=== PATIENT | female | born 1955 | race Asian ===

== ENCOUNTER 2022-11-04 14:07 | Inpatient (IN) | payer OTHER, MEDICAID ==
[~2022-11-04] VITALS: Ht 154.9 cm; Wt 48.1 kg
[2022-11-04 14:27] VITALS: BP_SYST 175; PULSE 98; RESP 18; TEMP 98; O2SAT 98
[2022-11-04] MEDS ORDERED: NS 1000 ML IV.SOLN IV ONE (14:30)
--- NOTE | 2022-11-04 14:31 | NUR ---
Placed in room 7 . Placed on monitor car operator, blood pressure machine and pulse oximeter. To gown for exam. Side rails up. Report given to YENNI ADAMS.
[2022-11-04] MEDS ORDERED: DIPHENHYDRAMINE INJ 50 MG/ML VIAL IVP ONE (14:45)
[2022-11-04] MEDS ORDERED: METOCLOPRAMIDE HCL 10 MG/2 ML VIAL IVP ONE (14:45)
[2022-11-04] MEDS ORDERED: INSULIN REGULAR, HUMAN 10 UNITS/0.1 ML, 3 ML VIAL IVP ONE (14:45)
[2022-11-04 15:05] LABS: BASOPHILS % (AUTO) 0.2 % (0.0-2.0); HEMATOCRIT 33.2 % (36-48); HEMOGLOBIN 11.1 g/dL (12.0-16.0); LYMPHOCYTES # (AUTO) 0.7 K/uL (1.0-5.5); LYMPHOCYTES % (AUTO) 8.6 % (20.5-51.5); MEAN CORPUSCULAR HEMOGLOBIN 29 pg (27-31); MEAN CORPUSCULAR HGB CONC 34 % (32-36); MEAN CORPUSCULAR VOLUME 88 fL (79.0-98.0); MONOCYTES # (AUTO) 0.7 K/uL (0.0-1.0); MONOCYTES % (AUTO) 7.8 % (1.7-9.3); NEUTROPHILS # (AUTO) 7.3 K/uL (1.8-7.7); NEUTROPHILS % (AUTO) 83.4 % (40.0-70.0); PLATELET COUNT (AUTO) 197 K/uL (130-430); RED BLOOD CELL COUNT(AUTO) 3.79 MIL/uL (4.2-6.2); RED CELL DISTRIBUTION WIDTH 13.1 % (9.0-15.0); WHITE BLOOD COUNT (AUTO) 8.7 K/uL (4.8-10.8)
[2022-11-04 15:20] LABS: INR 0.9 (0.8-1.2); PROTHROMBIN TIME 9.5 SECS (9.5-12.5)
[2022-11-04 15:30] LABS: ALANINE AMINOTRANSFERASE 26 U/L (12-78); ALBUMIN 2.6 g/dL (3.4-4.8); ANION GAP 9 (5-15); ASPARTATE AMINOTRANSFERASE 15 U/L (10-37); CALCIUM 9.1 mg/dL (8.4-11.0); CHLORIDE 94 mmol/L (98-107); CREATININE 2.25 mg/dL (0.55-1.30); GFR AFRICAN AMERICAN 28 mL/min (>90); TOTAL BILIRUBIN 0.5 mg/dL (0.0-1.0); UREA NITROGEN, BLOOD 65 mg/dL (8-21)
[2022-11-04 15:38] LABS: GLUCOSE 561 mg/dL (70-99)
[2022-11-04] MEDS ORDERED: NACL 0.9% 1,000 ML IV ONE (16:00)
--- NOTE | 2022-11-04 16:00 | NUR ---
Patient has been resting in bed after MD's evaluation. Patient receiving fluid thoughoit
[2022-11-04 16:23] LABS: ACETONE, SERUM NEGATIVE (NEGATIVE)
[2022-11-04] MEDS ORDERED: INSULIN REGULAR, HUMAN 100 UNITS/ML, 3 ML VIAL (humuLIN R) SUBCUT PRN (17:15)
[2022-11-04 17:19] LABS: BILIRUBIN,URINE NEGATIVE (NEGATIVE); BLOOD, URINE 2+ (NEGATIVE); CLARITY/URINE CLOUDY (CLEAR); COLOR,URINE YELLOW (YELLOW); GLUCOSE,URINE 3+ (NEGATIVE); KETONES,URINE NEGATIVE (NEGATIVE); LEUKOCYTE ESTERASE ,URINE 1+ (NEGATIVE); NITRITE, URINE POSITIVE (NEGATIVE); PROTEIN URINE 3+ (NEGATIVE); UROBILINOGEN,URINE 0.2 (0.2-1.0)
[2022-11-04] MEDS: NACL 0.9% 1,000 ML IV SCH ×2 (17:23→21:47)
[2022-11-04] MEDS ORDERED: INSULIN REGULAR, HUMAN 10 UNITS/0.1 ML, 3 ML VIAL ONE (17:35)
--- NOTE | 2022-11-04 17:52 | NUR ---
Patient finally went to bathroom and provided urine. Urine was sent to the lab and patient has UTI. Patient's med given and patient escorted to floor by BRYAN King.
--- NOTE | 2022-11-04 17:53 | NUR ---
Patient will be admitted to care of Dr. Mcfadden. Admitted to telemetry unit. Will go to room 111B. Belongings list completed. Complete and up to date summary report printed. SBAR report to be given at bedside with opportunity for questions.
[2022-11-04] MEDS ORDERED: cefTRIAXone 1 GM IVPB PREMIX 50 ML IV ONE (18:00)
--- NOTE | 2022-11-04 18:30 | NUR ---
Admit notes received pt fro ER, No distress. Denies any pain at this time. Eating dinner. IVF infusing well. Make comfortable.
[2022-11-04 18:32] VITALS: BP_SYST 163; PULSE 115; RESP 18; TEMP 99.2; O2SAT 99
[2022-11-04 18:33] LABS: WBC,URINE >100 /HPF (0-3)
[2022-11-04 18:34] LABS: BACTERIA,URINE MANY /HPF (None Seen); MUCUS,URINE None Seen /LPF (None Seen)
[2022-11-04 18:45] VITALS: BP_SYST 163; PULSE 118; RESP 16; TEMP 99.2; O2SAT 99
--- NOTE | 2022-11-04 18:52 | NUR ---
Admission done.. Will endorse to do belongings
--- NOTE | 2022-11-04 19:50 | NUR ---
OPENING NOTE PT LYING IN BED AND EYES CLOSED. A/OX4. BREATHING EVEN AND NONLABORED RA. O2 SAT 98%. BODY TEMPT 99.6. DENIED PAIN. SKIN INTACT. SAFETY CHECKS IN PLACE. CALL LIGHT IN REACH. CONTINUE TO MONITOR
--- NOTE | 2022-11-04 19:51 | NUR ---
Paged Dr. Mcfadden s/w Frank
[2022-11-04 20:00] VITALS: O2SAT 98
[2022-11-04 20:04] VITALS: BP_SYST 164; PULSE 88; RESP 18; TEMP 99.6; O2SAT 98
[2022-11-04] MEDS ORDERED: ACETAMINOPHEN 500 MG TABLET PO PRN (21:30)
[2022-11-04] MEDS ORDERED: cloNIDine HCL 0.2 MG TABLET PO PRN (21:30)
--- NOTE | 2022-11-04 21:30 | NUR ---
RECEIVED ORDERS RECEIVED RETURN CALL FROM DR. COOPER. REPORTED PT'S MILD FEVER, HIGH BP. RECEIVED ORDER CLONIDINE 0.2mg Q6P WHEN SYSTOLIC OVER 160, TYLENOL 500mg Q6H WHEN TEMP OVER 100.4, GLUCOSE CHECK Q4H, COVERED NORMAL INSULIN. FLUID NS @[address] COOPER
--- NOTE | 2022-11-04 22:02 | NUR ---
IV FLUID HUNG NS @100 mL. IV ON LEFT AC 22G AND PATENT SKIN INTACT.
[2022-11-04 22:22] VITALS: BP_SYST 164; PULSE 88; RESP 18; TEMP 99.6
--- NOTE | 2022-11-04 22:50 | NUR ---
ACCU CHECK PT'S BLOOD GLUCOSE 113. NO INSULIN COVERED
[2022-11-05 00:02] VITALS: BP_SYST 143; PULSE 89; RESP 16; TEMP 98.4; O2SAT 98
--- NOTE | 2022-11-05 01:33 | NUR ---
ROUNDING NOTE PT LYING IN BED AND EYES CLOSED. BREATHING EVEN AND NONLABORED ON RA. VSS. NS IV RUNNING @100mL. SAFETY CHECKS IN PLACE. CALL LIGHT IN REACH. CONTINUE TO MONITOR
[2022-11-05] MEDS: INSULIN REGULAR, HUMAN 100 UNITS/ML, 3 ML VIAL (humuLIN R) SUBCUT PRN ×5 (03:18→21:15)
--- NOTE | 2022-11-05 03:20 | NUR ---
ACCU CHECK BLOOD GLUCOSE 211. GIVEN HUMULIN R 4 UNITS. ALL COMFORT MEASURE MET AT THIS MOMENT. CONTINUE TO MONITOR
--- NOTE | 2022-11-05 06:39 | NUR ---
ACCU CHECK BLOOD GLUCOSE 159. GIVEN 2 UNITS OF HUMULIN R
--- NOTE | 2022-11-05 06:50 | NUR ---
CLOSING NOTE PT LYING IN BED AND EYES CLOSED. BREATHING EVEN AND NONLABORED ON RA. NO PAIN REPORTED. IV RUNNING NS @100 ON LEFT AC 22G. SAFETY CHECKS IN PLACE. CALL LIGHT IN REACH. ENDORSED TO DAY SHIFT NURSE
[2022-11-05 08:08] VITALS: BP_SYST 154; PULSE 97; RESP 16; TEMP 97.8; O2SAT 100
--- NOTE | 2022-11-05 08:30 | NUR ---
opening notes pt is alert orented x4, it site to l fa is intact, no co pain, pt ambulated with asst. states she feels better, eating feeding herslf, instructed to call for any needs, call light with in reach.
[2022-11-05] MEDS ORDERED: HYDROcodone/ACETAMIN 5-325 MG TAB (NORCO/ VICODIN) PO PRN (10:00)
[2022-11-05] MEDS ORDERED: LORazepam 2 MG/ML VIAL IVP PRN (10:00)
[2022-11-05] MEDS: NACL 0.9% 1,000 ML IV SCH ×2 (10:00→20:36)
[2022-11-05] MEDS ORDERED: ACETAMINOPHEN 325 MG TABLET PO PRN ×2 (10:00→10:15)
[2022-11-05] MEDS ORDERED: HYDROcodone/ACETAMIN 10-325 MG TAB PO PRN (10:00)
[2022-11-05] MEDS ORDERED: NALOXONE HCL 0.4 MG/ML AMP (NARCAN) IVP PRN ×2 (10:00)
[2022-11-05] MEDS ORDERED: ONDANSETRON HCL 4 MG/2 ML VIAL IVP PRN (10:00)
--- NOTE | 2022-11-05 10:00 | NUR ---
ACTIVITY AMBULATED WITH PATIENT TO REST ROOM, GATE WAS STEADY, NO ASST. NEEDED.VOIDED.
--- NOTE | 2022-11-05 10:30 | NUR ---
fingersticks q4 hour finger stick D/cd
--- NOTE | 2022-11-05 10:33 | NUR ---
CONSULTATION PAGED/CALLED Reason for Consultation: COY Person Who was Notified: SHI Consulting Physician: DR. OH Store Host Specialty: NEPHROLOGY Ordering Physician: DR. LOZA
--- NOTE | 2022-11-05 11:08 | NUR ---
TELEMETRIY DOWNGRADE TELE DOWNGRADE , MONITOR REMOVED, PT COMFORTABLE, NO C/OP DISCOMFORT, CALL LIGHT WITH IN REACH.
[2022-11-05] MEDS: cefTRIAXone 1 GM IVPB PREMIX 50 ML IV SCH (11:26)
[2022-11-05 11:27] VITALS: BP_SYST 141; PULSE 89; RESP 16; TEMP 98; O2SAT 96
--- NOTE | 2022-11-05 11:54 | NUR ---
ACCUCHECK BS 199 2U GIVEN, PER ORDERS ON SS. PT HAS NO C/O DISCOMFORT
[2022-11-05 12:43] VITALS: BP_SYST 144; PULSE 88; RESP 14; TEMP 97.8; O2SAT 100
--- NOTE | 2022-11-05 15:13 | NUR ---
PHYSICAL THERAPY PT HERE TO ASSESS PT, SAYS SHE HAS GENERAL WEAKNESS AND DOES NOT RECOMEND SHE WALK BY HERSELF, STATES SHE HAD SOME DIZZINESS WHILE AMBULATING. PT RETURNED TO BED, CALL LIGHT WITH IN REACH, NO FURTHER CO DIZZINESS,
[2022-11-05 16:42] VITALS: BP_SYST 135; PULSE 84; RESP 16; TEMP 97.6; O2SAT 95
--- NOTE | 2022-11-05 17:15 | NUR ---
ACTIVITY AMBULATED WITH PT TO REST ROOM, NO C/O DIZZINESS, GAIT WAS STEADY. MINIMAL ASST NEEDED.VOIDED, RETURNED TO BED, PT SITTING UP WAITING FOR DINNER, CALL LIGHT WITH IN REACH
--- NOTE | 2022-11-05 17:28 | NUR ---
LAWRENCE BS 284 INSULIN GIVEN PER ORDERS ON SS.
--- NOTE | 2022-11-05 18:18 | NUR ---
CLOSING PT LYING COMFORTABLY IN BED, IV SITE INTACT, NO CO PAIN, DIZZINESS, OR ANY NEEDS, CALL LIGHT WITH IN REACH.
[2022-11-05 19:42] VITALS: BP_SYST 178; PULSE 94; RESP 18; TEMP 98.1; O2SAT 96
--- NOTE | 2022-11-05 21:00 | NUR ---
Discussed plan of care,safety ,medication indication indication ,side effect verbalized understanding,bedside commode provided for safety/comfort.
--- NOTE | 2022-11-05 23:17 | NUR ---
PATIENT RESTING: Patient resting quietly. No acute distress noted. Vital signs within normal range.
[2022-11-06 00:34] VITALS: BP_SYST 133; PULSE 69; RESP 20; TEMP 98.5; O2SAT 98
[2022-11-06 06:16] LABS: BASOPHILS % (AUTO) 0.4 % (0.0-2.0); EOSINOPHILS # (AUTO) 0.1 K/uL (0.0-0.4); EOSINOPHILS % (AUTO) 0.8 % (0.0-4.0); HEMATOCRIT 27.2 % (36-48); HEMOGLOBIN 9.1 g/dL (12.0-16.0); LYMPHOCYTES % (AUTO) 15.4 % (20.5-51.5); MEAN CORPUSCULAR HEMOGLOBIN 29 pg (27-31); MEAN CORPUSCULAR HGB CONC 34 % (32-36); MEAN CORPUSCULAR VOLUME 87 fL (79.0-98.0); MONOCYTES # (AUTO) 0.7 K/uL (0.0-1.0); MONOCYTES % (AUTO) 11.3 % (1.7-9.3); NEUTROPHILS # (AUTO) 4.6 K/uL (1.8-7.7); NEUTROPHILS % (AUTO) 72.1 % (40.0-70.0); PLATELET COUNT (AUTO) 191 K/uL (130-430); RED BLOOD CELL COUNT(AUTO) 3.14 MIL/uL (4.2-6.2); RED CELL DISTRIBUTION WIDTH 13.5 % (9.0-15.0); WHITE BLOOD COUNT (AUTO) 6.4 K/uL (4.8-10.8)
[2022-11-06 06:23] LABS: CALCIUM 8.1 mg/dL (8.4-11.0); CREATININE 1.17 mg/dL (0.55-1.30); PHOSPHORUS 3.3 mg/dL (2.7-4.5)
[2022-11-06] MEDS: NACL 0.9% 1,000 ML IV SCH (07:27)
[2022-11-06 08:00] VITALS: BP_SYST 129; PULSE 70; RESP 19; TEMP 97.3; O2SAT 97
[2022-11-06] MEDS: cefTRIAXone 1 GM IVPB PREMIX 50 ML IV SCH (09:27)
[2022-11-06 11:44] VITALS: BP_SYST 141; PULSE 76; RESP 18; TEMP 98; O2SAT 99
[2022-11-06 12:00] VITALS: BP_SYST 136; PULSE 79; RESP 19; TEMP 98.6; O2SAT 97
[2022-11-06] MEDS: INSULIN REGULAR, HUMAN 100 UNITS/ML, 3 ML VIAL (humuLIN R) SUBCUT PRN ×3 (12:12→22:03)
[2022-11-06] MEDS: NORMAL SALINE 5 ML DISP.SYRIN IVF SCH ×2 (14:11→22:01)
[2022-11-06 16:00] VITALS: BP_SYST 142; BP_SYST 144; PULSE 80; PULSE 82; RESP 17; RESP 20; TEMP 97.6; TEMP 98.8; O2SAT 96; O2SAT 98
[2022-11-06] MEDS: metFORMIN HCL 500 MG TABLET PO SCH (18:11)
--- NOTE | 2022-11-06 19:18 | NUR ---
Dietitian Recommendations * Continue [facility] diet * Encourage good PO intakes * Low-glycemic, high-protein snacks between meals TID FRENCH, MS, RD Please refer to Nutrition Assessment for details. Addendum: 11/06/22 at [address] Amended: Links added.
[2022-11-06 20:00] VITALS: BP_SYST 157; PULSE 88; RESP 17; TEMP 97.8; O2SAT 99
[2022-11-06] MEDS: LISINOPRIL 10 MG TABLET (PRINIVIL) PO SCH (22:00)
[2022-11-07] VITALS (7 sets, daily range): BP systolic 144–161; PULSE 78–91; RESP 16–19; TEMP 96.9–98.6; O2SAT 95–100
[2022-11-07 05:42] LABS: BASOPHILS % (AUTO) 0.4 % (0.0-2.0); EOSINOPHILS # (AUTO) 0.1 K/uL (0.0-0.4); EOSINOPHILS % (AUTO) 1.2 % (0.0-4.0); HEMOGLOBIN 8.8 g/dL (12.0-16.0); LYMPHOCYTES # (AUTO) 1.5 K/uL (1.0-5.5); LYMPHOCYTES % (AUTO) 20.9 % (20.5-51.5); MEAN CORPUSCULAR HEMOGLOBIN 29 pg (27-31); MEAN CORPUSCULAR HGB CONC 34 % (32-36); MEAN CORPUSCULAR VOLUME 86 fL (79.0-98.0); MONOCYTES # (AUTO) 0.7 K/uL (0.0-1.0); MONOCYTES % (AUTO) 10.4 % (1.7-9.3); NEUTROPHILS # (AUTO) 4.8 K/uL (1.8-7.7); NEUTROPHILS % (AUTO) 67.1 % (40.0-70.0); PLATELET COUNT (AUTO) 193 K/uL (130-430); RED BLOOD CELL COUNT(AUTO) 3.02 MIL/uL (4.2-6.2); RED CELL DISTRIBUTION WIDTH 13.5 % (9.0-15.0); WHITE BLOOD COUNT (AUTO) 7.1 K/uL (4.8-10.8)
[2022-11-07 06:25] LABS: ALBUMIN 1.6 g/dL (3.4-4.8); CALCIUM 7.8 mg/dL (8.4-11.0); CREATININE 1.04 mg/dL (0.55-1.30); PHOSPHORUS 3.5 mg/dL (2.7-4.5); TOTAL BILIRUBIN 0.2 mg/dL (0.0-1.0)
[2022-11-07 06:41] LABS: ERYTHROCYTE SEDIMENTATION RATE 79 MM/HR (0-20)
[2022-11-07] MEDS: NORMAL SALINE 5 ML DISP.SYRIN IVF SCH ×3 (06:50→20:59)
--- NOTE | 2022-11-07 07:00 | NUR ---
NOTES PATIENT IS RESTING, BREATHING UNLABORED ON RA. NO PAIN, NO DISTRESS, NO SOB REPORTED. ENCOURAGE PATIENT TO USE CALL LIGHT FOR HELP. SAFETY PRECAUTION IN PLACE. CALL LIGHT WITHIN REACH. BED LOCKED IN LOWEST POSITION. WILL CONTINUE WITH PLAN OF CARE.
[2022-11-07] MEDS: metFORMIN HCL 500 MG TABLET PO SCH ×2 (08:49→17:07)
--- NOTE | 2022-11-07 10:21 | NUR ---
CONSULTATION PAGED REASON FOR CONSULTATION: SEPSIS WAS CONSULT CALLED? Y PERSON WHO WAS NOTIFIED: SACHIN CONSULTING PHYSICIAN: KATIANA KWONG SUBSTANCE ABUSE THERAPIST SPECIALTY: ID SUBSTANCE ABUSE THERAPIST PHONE NUMBER: [phone] REQUESTING PHYSICIAN: QUIQUE MATTHEW
[2022-11-07] MEDS: INSULIN REGULAR, HUMAN 100 UNITS/ML, 3 ML VIAL (humuLIN R) SUBCUT PRN ×3 (11:25→20:59)
[2022-11-07] MEDS: cefTRIAXone 1 GM IVPB PREMIX 50 ML IV SCH (11:58)
--- NOTE | 2022-11-07 18:50 | NUR ---
CLOSING PATIENT IS RESTING, BREATHING UNLABORED ON RA. NO PAIN, NO DISTRESS, NO SOB REPORTED. ENCOURAGE PATIENT TO USE CALL LIGHT FOR HELP. SAFETY PRECAUTION IN PLACE. CALL LIGHT WITHIN REACH. BED LOCKED IN LOWEST POSITION. WILL ENDORSE TO LAUNDRY EQUIPMENT OPERATOR NURSE.
[2022-11-07] MEDS: LISINOPRIL 10 MG TABLET (PRINIVIL) PO SCH (20:57)
[2022-11-08 00:33] VITALS: BP_SYST 153; PULSE 80; RESP 15; TEMP 97.8; O2SAT 98
[2022-11-08] MEDS: NORMAL SALINE 5 ML DISP.SYRIN IVF SCH ×3 (05:40→21:04)
[2022-11-08] MEDS: INSULIN REGULAR, HUMAN 100 UNITS/ML, 3 ML VIAL (humuLIN R) SUBCUT PRN ×3 (06:33→21:08)
[2022-11-08 07:15] LABS: BASOPHILS % (AUTO) 0.4 % (0.0-2.0); EOSINOPHILS # (AUTO) 0.1 K/uL (0.0-0.4); EOSINOPHILS % (AUTO) 1.3 % (0.0-4.0); HEMATOCRIT 28.6 % (36-48); HEMOGLOBIN 9.4 g/dL (12.0-16.0); LYMPHOCYTES # (AUTO) 1.6 K/uL (1.0-5.5); LYMPHOCYTES % (AUTO) 20.4 % (20.5-51.5); MEAN CORPUSCULAR HEMOGLOBIN 29 pg (27-31); MEAN CORPUSCULAR HGB CONC 33 % (32-36); MEAN CORPUSCULAR VOLUME 87 fL (79.0-98.0); MONOCYTES # (AUTO) 0.8 K/uL (0.0-1.0); NEUTROPHILS # (AUTO) 5.2 K/uL (1.8-7.7); NEUTROPHILS % (AUTO) 67.9 % (40.0-70.0); PLATELET COUNT (AUTO) 268 K/uL (130-430); RED BLOOD CELL COUNT(AUTO) 3.29 MIL/uL (4.2-6.2); RED CELL DISTRIBUTION WIDTH 13.2 % (9.0-15.0); WHITE BLOOD COUNT (AUTO) 7.7 K/uL (4.8-10.8)
--- NOTE | 2022-11-08 07:55 | NUR ---
OPENING NOTES: PATIENT IN BED WITH EYES OPENED. RESPONDED TO NAME. BREATHING IS EVEN AND UNLABORED ON RA 98%. NO S/S OF DISTRESS OR PAIN NOTED. IV IS PATENT AND SALINE LOCKED. ALL NEEDS MET AT THIS TIME, SAFETY CHECKS MADE AND CALL LIGHT WITHIN REACH.
[2022-11-08 08:00] VITALS: BP_SYST 152; PULSE 76; RESP 15; TEMP 97.1; O2SAT 98
[2022-11-08 08:02] LABS: CALCIUM 8.4 mg/dL (8.4-11.0); CREATININE 1.09 mg/dL (0.55-1.30)
[2022-11-08] MEDS: metFORMIN HCL 500 MG TABLET PO SCH ×2 (08:12→17:50)
[2022-11-08 08:14] LABS: ERYTHROCYTE SEDIMENTATION RATE 100 MM/HR (0-20)
[2022-11-08 12:00] VITALS: BP_SYST 141; PULSE 78; RESP 16; TEMP 98.2; O2SAT 98
[2022-11-08 13:37] VITALS: O2SAT 98
[2022-11-08] MEDS ORDERED: D5/0.45 NS 1,000 ML IV SCH (15:00)
[2022-11-08 16:00] VITALS: BP_SYST 150; PULSE 87; RESP 16; TEMP 98.2; O2SAT 95
--- NOTE | 2022-11-08 18:23 | NUR ---
CLOSING NOTES: PATIENT SITTING EDGE OF BED EATING DINNER. NO S/S OF DISTRESS OR PAIN REPORTED. BREATHING IS EVEN AND UNLABORED ON RA 99%. ALL NEEDS MET AT THIS TIME, SAFETY CHECKS MADE AND CALL LIGHT WITHIN REACH. WILL ENDORSE TO BLEACHER SULFITE PULP NURSE.
[2022-11-08 20:20] VITALS: BP_SYST 152; PULSE 92; RESP 16; TEMP 97.2; O2SAT 98
[2022-11-08] MEDS: LISINOPRIL 10 MG TABLET (PRINIVIL) PO SCH (21:02)
[2022-11-09 00:25] VITALS: BP_SYST 150; PULSE 88; RESP 17; TEMP 98.4; O2SAT 98
[2022-11-09] MEDS: NORMAL SALINE 5 ML DISP.SYRIN IVF SCH ×3 (06:03→21:13)
[2022-11-09] MEDS: INSULIN REGULAR, HUMAN 100 UNITS/ML, 3 ML VIAL (humuLIN R) SUBCUT PRN ×4 (06:08→21:13)
[2022-11-09 06:48] LABS: BASOPHILS % (AUTO) 0.4 % (0.0-2.0); EOSINOPHILS # (AUTO) 0.1 K/uL (0.0-0.4); EOSINOPHILS % (AUTO) 0.9 % (0.0-4.0); HEMATOCRIT 30.2 % (36-48); LYMPHOCYTES # (AUTO) 2.1 K/uL (1.0-5.5); LYMPHOCYTES % (AUTO) 21.5 % (20.5-51.5); MEAN CORPUSCULAR HEMOGLOBIN 29 pg (27-31); MEAN CORPUSCULAR HGB CONC 33 % (32-36); MEAN CORPUSCULAR VOLUME 86 fL (79.0-98.0); MONOCYTES # (AUTO) 0.6 K/uL (0.0-1.0); MONOCYTES % (AUTO) 6.2 % (1.7-9.3); NEUTROPHILS # (AUTO) 6.8 K/uL (1.8-7.7); PLATELET COUNT (AUTO) 343 K/uL (130-430); RED BLOOD CELL COUNT(AUTO) 3.51 MIL/uL (4.2-6.2); RED CELL DISTRIBUTION WIDTH 13.4 % (9.0-15.0); WHITE BLOOD COUNT (AUTO) 9.6 K/uL (4.8-10.8)
[2022-11-09 07:21] LABS: ALBUMIN 2.1 g/dL (3.4-4.8); CALCIUM 8.6 mg/dL (8.4-11.0); CREATININE 1.14 mg/dL (0.55-1.30); PHOSPHORUS 4.1 mg/dL (2.7-4.5); TOTAL BILIRUBIN 0.4 mg/dL (0.0-1.0)
[2022-11-09 08:00] VITALS: BP_SYST 143; PULSE 77; RESP 15; TEMP 97.1; O2SAT 97
--- NOTE | 2022-11-09 08:19 | NUR ---
OPENING NOTES: PATIENT IN BED ON HER CELL PHONE. RESPONDED TO NAME. NO S/S OF DISTRESS OR PAIN REPORTED. BREATHING IS EVEN AND UNLABORED ON RA 98% . SAFETY CHECKS MADE AND CALL LIGHT WITHIN REACH.
[2022-11-09] MEDS: metFORMIN HCL 500 MG TABLET PO SCH ×2 (08:43→18:08)
[2022-11-09 12:57] VITALS: BP_SYST 148; PULSE 80; RESP 16; TEMP 97.8; O2SAT 97
[2022-11-09 12:59] VITALS: O2SAT 97
--- NOTE | 2022-11-09 14:33 | NUR ---
patient in bed with eyes closed. responded to name. no s/s of distress or pain reported. breathing is even and unlabored. safety checks made and call light within reach.
[2022-11-09 16:00] VITALS: BP_SYST 145; PULSE 79; RESP 15; TEMP 97.4; O2SAT 96
[2022-11-09 20:10] VITALS: BP_SYST 140; PULSE 89; RESP 17; TEMP 98.4; O2SAT 96
[2022-11-09] MEDS: LISINOPRIL 10 MG TABLET (PRINIVIL) PO SCH (21:09)
[2022-11-10 00:10] VITALS: BP_SYST 148; PULSE 80; RESP 18; TEMP 98.9; O2SAT 98
[2022-11-10 04:59] LABS: BASOPHILS % (AUTO) 0.3 % (0.0-2.0); EOSINOPHILS # (AUTO) 0.1 K/uL (0.0-0.4); EOSINOPHILS % (AUTO) 0.9 % (0.0-4.0); HEMATOCRIT 24.5 % (36-48); HEMOGLOBIN 8.3 g/dL (12.0-16.0); LYMPHOCYTES # (AUTO) 2.1 K/uL (1.0-5.5); LYMPHOCYTES % (AUTO) 19.8 % (20.5-51.5); MEAN CORPUSCULAR HEMOGLOBIN 29 pg (27-31); MEAN CORPUSCULAR HGB CONC 34 % (32-36); MEAN CORPUSCULAR VOLUME 86 fL (79.0-98.0); MONOCYTES # (AUTO) 0.6 K/uL (0.0-1.0); MONOCYTES % (AUTO) 6.1 % (1.7-9.3); NEUTROPHILS # (AUTO) 7.7 K/uL (1.8-7.7); NEUTROPHILS % (AUTO) 72.9 % (40.0-70.0); PLATELET COUNT (AUTO) 337 K/uL (130-430); RED BLOOD CELL COUNT(AUTO) 2.86 MIL/uL (4.2-6.2); RED CELL DISTRIBUTION WIDTH 12.9 % (9.0-15.0); WHITE BLOOD COUNT (AUTO) 10.5 K/uL (4.8-10.8)
[2022-11-10 05:35] LABS: ALBUMIN 1.8 g/dL (3.4-4.8); CALCIUM 8.2 mg/dL (8.4-11.0); CREATININE 1.02 mg/dL (0.55-1.30); PHOSPHORUS 3.9 mg/dL (2.7-4.5); TOTAL BILIRUBIN 0.3 mg/dL (0.0-1.0)
[2022-11-10] MEDS: NORMAL SALINE 5 ML DISP.SYRIN IVF SCH ×3 (06:15→22:03)
[2022-11-10 07:00] VITALS: BP_SYST 115; PULSE 78; RESP 18; TEMP 96.3; O2SAT 100
[2022-11-10 08:00] VITALS: BP_SYST 115; PULSE 78; RESP 18; TEMP 96.3; O2SAT 100
[2022-11-10] MEDS: metFORMIN HCL 500 MG TABLET PO SCH ×2 (08:33→17:38)
[2022-11-10] MEDS: INSULIN REGULAR, HUMAN 100 UNITS/ML, 3 ML VIAL (humuLIN R) SUBCUT PRN ×3 (11:58→22:11)
[2022-11-10 16:00] VITALS: BP_SYST 136; PULSE 62; RESP 18; TEMP 98.3; O2SAT 98
[2022-11-10 20:00] VITALS: BP_SYST 124; PULSE 90; RESP 18; TEMP 96.3; O2SAT 98
[2022-11-10] MEDS: LISINOPRIL 10 MG TABLET (PRINIVIL) PO SCH (22:03)
[2022-11-11 00:30] VITALS: BP_SYST 128; PULSE 65; RESP 18; TEMP 97.7; O2SAT 96
[2022-11-11] MEDS: NORMAL SALINE 5 ML DISP.SYRIN IVF SCH ×3 (06:07→22:21)
[2022-11-11 06:22] LABS: BASOPHILS % (AUTO) 0.4 % (0.0-2.0); EOSINOPHILS # (AUTO) 0.1 K/uL (0.0-0.4); EOSINOPHILS % (AUTO) 1.6 % (0.0-4.0); HEMATOCRIT 24.6 % (36-48); HEMOGLOBIN 8.1 g/dL (12.0-16.0); LYMPHOCYTES % (AUTO) 23.3 % (20.5-51.5); MEAN CORPUSCULAR HEMOGLOBIN 29 pg (27-31); MEAN CORPUSCULAR HGB CONC 33 % (32-36); MEAN CORPUSCULAR VOLUME 87 fL (79.0-98.0); MONOCYTES # (AUTO) 0.5 K/uL (0.0-1.0); MONOCYTES % (AUTO) 5.3 % (1.7-9.3); NEUTROPHILS % (AUTO) 69.4 % (40.0-70.0); PLATELET COUNT (AUTO) 363 K/uL (130-430); RED BLOOD CELL COUNT(AUTO) 2.83 MIL/uL (4.2-6.2); RED CELL DISTRIBUTION WIDTH 13.3 % (9.0-15.0); WHITE BLOOD COUNT (AUTO) 8.6 K/uL (4.8-10.8)
[2022-11-11 07:05] LABS: CALCIUM 8.3 mg/dL (8.4-11.0)
[2022-11-11 07:06] LABS: CREATININE 1.15 mg/dL (0.55-1.30)
[2022-11-11 08:13] VITALS: BP_SYST 138; PULSE 77; RESP 16; TEMP 97.2; O2SAT 100
[2022-11-11] MEDS: metFORMIN HCL 500 MG TABLET PO SCH ×2 (09:10→17:56)
[2022-11-11] MEDS ORDERED: LISI10TA29 PO (11:08)
[2022-11-11] MEDS ORDERED: METF-379 PO (11:08)
[2022-11-11] MEDS ORDERED: ROCI2 IM/IV (11:08)
[2022-11-11] MEDS: INSULIN REGULAR, HUMAN 100 UNITS/ML, 3 ML VIAL (humuLIN R) SUBCUT PRN ×2 (11:52→21:22)
[2022-11-11 14:39] VITALS: BP_SYST 127; PULSE 82; RESP 16; TEMP 98.3; O2SAT 97
[2022-11-11 19:00] VITALS: BP_SYST 153; PULSE 83; RESP 12; TEMP 98; O2SAT 100
[2022-11-11 20:00] VITALS: BP_SYST 153; PULSE 83; RESP 12; TEMP 98; O2SAT 100
[2022-11-11] MEDS: LISINOPRIL 10 MG TABLET (PRINIVIL) PO SCH (21:11)
[2022-11-12] VITALS: BP_SYST 134; PULSE 72; RESP 12; TEMP 97.2; O2SAT 99
[2022-11-12 05:11] LABS: BASOPHILS % (AUTO) 0.4 % (0.0-2.0); EOSINOPHILS # (AUTO) 0.1 K/uL (0.0-0.4); EOSINOPHILS % (AUTO) 1.3 % (0.0-4.0); HEMOGLOBIN 7.9 g/dL (12.0-16.0); LYMPHOCYTES % (AUTO) 25.3 % (20.5-51.5); MEAN CORPUSCULAR HEMOGLOBIN 29 pg (27-31); MEAN CORPUSCULAR HGB CONC 33 % (32-36); MEAN CORPUSCULAR VOLUME 86 fL (79.0-98.0); MONOCYTES # (AUTO) 0.5 K/uL (0.0-1.0); MONOCYTES % (AUTO) 5.8 % (1.7-9.3); NEUTROPHILS # (AUTO) 5.4 K/uL (1.8-7.7); NEUTROPHILS % (AUTO) 67.2 % (40.0-70.0); PLATELET COUNT (AUTO) 399 K/uL (130-430); RED BLOOD CELL COUNT(AUTO) 2.78 MIL/uL (4.2-6.2); RED CELL DISTRIBUTION WIDTH 13.2 % (9.0-15.0)
[2022-11-12 05:38] LABS: CALCIUM 8.4 mg/dL (8.4-11.0); CREATININE 1.09 mg/dL (0.55-1.30)
[2022-11-12 05:39] LABS: ERYTHROCYTE SEDIMENTATION RATE 68 MM/HR (0-20)
[2022-11-12] MEDS: NORMAL SALINE 5 ML DISP.SYRIN IVF SCH ×2 (06:00→14:21)
[2022-11-12 08:17] VITALS: BP_SYST 139; PULSE 81; RESP 14; TEMP 97.4; O2SAT 96
[2022-11-12] MEDS: metFORMIN HCL 500 MG TABLET PO SCH (08:43)
[2022-11-12 10:55] VITALS: BP_SYST 135; PULSE 78; RESP 17; TEMP 97.8; O2SAT 97
[2022-11-12] MEDS: INSULIN REGULAR, HUMAN 100 UNITS/ML, 3 ML VIAL (humuLIN R) SUBCUT PRN (11:39)
--- NOTE | 2022-11-12 12:02 | NUR ---
Marino Turcios with [facility] patient phone number to set up home health. Addendum: 11/12/22 at 1206 by Venkatesh Ohara RN RN stephany Dillon
[2022-11-12 13:00] VITALS: BP_SYST 158; PULSE 86; RESP 16; TEMP 96.4; O2SAT 98
--- NOTE | 2022-11-12 13:16 | NUR ---
Left message with Doctor Veronica as patient was able to set up home health with Wilma at [facility].
--- NOTE | 2022-11-12 13:40 | NUR ---
Left message with Wilma at [facility] regarding home health and ok to discharge patient.
--- NOTE | 2022-11-12 15:44 | NUR ---
[facility] health to follow patient at home per Wilma start date tomorrow. Today a dose of antibiotic was given as per service request from insurance advisor, Wilma.
== END 2022-11-12 15:35 | disposition home health service (06) | DRG 871 ==
LOC: SED 14:07 → STU 17:03 → SMU 11-05 10:05
PROVIDERS: ADMIT Specialist; ATTEND Specialist
DX: A41.51 Sepsis due to Escherichia coli [E. coli] (principal); E43 Unspecified severe protein-calorie malnutrition; N17.0 Acute kidney failure with tubular necrosis; N39.0 Urinary tract infection, site not specified; E87.1 Hypo-osmolality and hyponatremia; N12 Tubulo-interstitial nephritis, not specified as acute or chronic; E11.65 Type 2 diabetes mellitus with hyperglycemia; D64.9 Anemia, unspecified; E88.09 Other disorders of plasma-protein metabolism, not elsewhere classified; I12.9 Hypertensive chronic kidney disease with stage 1 through stage 4 chronic kidney disease, or unspecified chronic kidney disease; E11.22 Type 2 diabetes mellitus with diabetic chronic kidney disease; N18.9 Chronic kidney disease, unspecified; E83.52 Hypercalcemia; Z68.20 Body mass index [BMI] 20.0-20.9, adult
CPT/HCPCS: 36415; 71045; 76376; 80048; 80053; 81000; 82009; 82550; 82962; 83037; 83605; 83735; 84100; 84484; 85025; 85610-TC; 85651-TC; 85730-TC; 87040; 87086; 93005; 96361; 96372; 96374; 99285; C1751; G0378; J0696; J1200; J1815; J2765; J7030; J7060